=== PATIENT | male | born 1990 | race Caucasian/White ===

== ENCOUNTER 2023-12-07 21:49 | Emergency (ER) | payer OTHER ==
[~2023-12-07] VITALS: Ht 177.8 cm; Wt 113.4 kg
[2023-12-07 22:10] VITALS: BP 142/84; PULSE 92; RESP 18; TEMP 98; O2SAT 98
[2023-12-07] MEDS: LIDOCAINE/EPI 1% 1:100000 20 ML VIAL INJ ONE (23:11)
[2023-12-08] MEDS ORDERED: SULF-59 PO (00:57)
[2023-12-08] MEDS ORDERED: CEPH-588 PO (00:57)
[2023-12-08 01:21] VITALS: BP 142/84; PULSE 92; RESP 18; TEMP 98; O2SAT 98
== END 2023-12-08 01:24 | disposition home or self-care (01) ==
LOC: MED 21:49
DX: L02.31 Cutaneous abscess of buttock (principal)
CPT/HCPCS: 10060; 99284; J2001